=== PATIENT | female | born 1960 | race Caucasian/White ===

== ENCOUNTER 2025-09-20 19:04 | Emergency (ER) | payer MEDICARE, OTHER, SELFPAY ==
[2025-09-20 19:08] VITALS: BP 133/85
[2025-09-20 19:35] LABS: Hematocrit 40.2 % (37.0-47.0); Hemoglobin 13.1 g/dL (12.0-16.0); Mean Corp Hgb Conc. 32.6 g/dL (33.0-37.0); Mean Corpuscular Volume 80.4 fL (81.0-99.0); Nucleated Red Blood Cells % 0 %; Platelet Count 368 10^3/uL (130-400); Red Cell Dist. Width 14.6 % (11.5-14.5)
[2025-09-20 19:57] LABS: ALT (SGPT) 247 U/L (0-35); AST (SGOT) 52 U/L (14-36); Albumin 4.1 g/dl (3.5-5.0); Alkaline Phosphatase 334 U/L (38-126); Blood Urea Nitrogen 56 mg/dl (7-17); Calcium 8.8 mg/dl (8.4-10.2); Carbon Dioxide 22 mmol/L (22-30); Chloride 101 mmol/L (98-107); Glucose 141 mg/dl (70-99); Lipase 125 U/L (23-300); Potassium 3.6 mmol/L (3.5-5.1); Sodium 136 mmol/L (135-145); Total Protein 6.6 g/dl (6.3-8.2); eGFR 49.61
[2025-09-20 20:46] VITALS: BMI 28.4
[2025-09-20] MEDS: ZOFRAN 4 MG IV (21:00)
[2025-09-20] MEDS: NSS 250 IV (21:00)
[2025-09-20] MEDS: MORPHINE SULFATE 2 MG IV (21:01)
[2025-09-20] MEDS: FLAGYL 500 MG 100 IV (22:16)
--- NOTE | 2025-09-20 22:38 | ED.GENMED ---
History of Present Illness
<Ruth Youssef PA-C - Last Filed: 09/21/25 20:34>
General
Chief Complaint: Abdominal Pain
Time Seen by Provider: 09/20/25 20:24
History of Present Illness
History of Present Illness:
That he is a 65-year-old female with complicated past surgical history including Pamela-en-Y gastric bypass in [address] Bautista at [facility], appendectomy, cholecystectomy who presents with several days of nausea and vomiting
associated with right-sided abdominal pain. No associated diarrhea. No fevers or chills. Last bowel movement was this morning and continues to pass flatus.
Phy Exam
<Ruth Youssef PA-C - Last Filed: 09/21/25 20:34>
General Physical Exam
General Presentation: well appearing and no apparent distress
General Skin: warm and dry
General Habitus: normal
General Mental: alert
General Hydration: appears well hydrated
ENT Exam
ENT Exam: EOMI, pharynx normal, neck supple and normocephalic
Eye Exam
Eye Exam: PERRL, cornea clear and conjunctiva normal
Cardiovascular Exam
Cardiovascular Exam: regular rate/rhythm, no edema, no murmur and normal peripheral pulses
Pulmonary Exam
Pulmonary Exam: lungs clear, no respiratory distress, no rales, no crackles, no rhonchi, no stridor, no wheezing and no cough
Gastrointestinal Exam
Gastrointestinal Exam: normal bowel sounds, soft, no organomegaly, no pulsatile mass, non distended, tender and other (No peritoneal signs, no guarding)
Palpation: right upper quadrant: Moderate tenderness and right lower quadrant: Moderate tenderness
Neurological Exam
Neurological Exam: alert, oriented x3, no motor deficits and speech normal
Musculoskeletal Exam
Musculoskeletal Exam: full ROM and no edema
Skin Exam
Skin Exam: normal color, warm/dry, no rash and no petechia
Psychiatric Exam
Psychiatric Exam: normal mood/affect
Course
<Ruth Youssef PA-C - Last Filed: 09/21/25 20:34>
Orders/Labs/Results
Orders:
Orders
09/20/25 19:14
Electrocardiogram (*1) Urgent
Reason for Study: Abdominal Pain
EKG- Treatment ONCE
09/20/25 19:27
Complete Blood Count/With Diff Urgent
Comprehensive Metabolic Panel Urgent
Lipase Urgent
09/20/25 20:40
CT Abd/pelvis W Iv Cont Urgent
Comment:
Reason For Exam: right sided pain
09/20/25 20:56
0.9% Sodium Chloride 250 ml [Nss] 250 ml IV BOLUS
Morphine Sulfate 2 mg IV NOW STA
Ondansetron Injectable [Zofran] 4 mg IV NOW STA
09/20/25 21:58
Ciprofloxacin 200 mg/[id number] [Cipro 200 mg] 100 ml IV NOW
MetroNIDAZOLE 500 MG/100 ML [Flagyl 500 mg] 100 ml IV NOW
Abnormal Lab Results
09/20/25
19:27
WBC 15.4 H 10^3/uL
(4.8-10.8)
MCV 80.4 L fL
(81.0-99.0)
MCH 26.2 L pg
(27.0-31.0)
MCHC 32.6 L g/dL
(33.0-37.0)
RDW 14.6 H %
(11.5-14.5)
Abs Immat Gran (auto) 0.1 H 10^3/uL
(0-0.05)
Absolute Neuts (auto) 13.7 H 10^3/uL
(1.4-6.5)
Absolute Lymphs (auto) 0.8 L 10^3/uL
(1.2-3.4)
Absolute Monos (auto) 0.8 H 10^3/uL
(0.1-0.6)
Neutrophils % 88.9 H %
(42.2-75.2)
Lymphocytes % 5.3 L %
(20.5-51.1)
BUN 56 H mg/dl
(7-17)
Creatinine 1.2 H mg/dL
(0.6-1.0)
Glucose 141 H mg/dl
(70-99)
Total Bilirubin 2.3 H mg/dl
(0.2-1.3)
AST 52 H U/L
(14-36)
ALT 247 H U/L
(0-35)
Alkaline Phosphatase 334 H U/L
(38-126)
09/20/25 19:27
09/20/25 19:27
Vital Signs
Initial and Last Documented VS:
Initial Vital Signs
Temp Pulse Resp BP Pulse Ox
36.8 C 91 16 133/85 96
09/20/25 19:08 09/20/25 19:08 09/20/25 19:08 09/20/25 19:08 09/20/25 19:08
Last Documented Vital Signs
Temp Pulse Resp BP Pulse Ox
36.8 C 91 18 133/85 96
09/20/25 19:08 09/20/25 19:08 09/20/25 22:00 09/20/25 19:08 09/20/25 22:48
<Les Cleveland, DO - Last Filed: 09/20/25 23:30>
Orders/Labs/Results
Orders:
Orders
09/20/25 19:14
Electrocardiogram (*1) Urgent
Reason for Study: Abdominal Pain
EKG- Treatment ONCE
09/20/25 19:27
Complete Blood Count/With Diff Urgent
Comprehensive Metabolic Panel Urgent
Lipase Urgent
09/20/25 20:40
CT Abd/pelvis W Iv Cont Urgent
Comment:
Reason For Exam: right sided pain
09/20/25 20:56
0.9% Sodium Chloride 250 ml [Nss] 250 ml IV BOLUS
Morphine Sulfate 2 mg IV NOW STA
Ondansetron Injectable [Zofran] 4 mg IV NOW STA
09/20/25 21:58
Ciprofloxacin 200 mg/[id number] [Cipro 200 mg] 100 ml IV NOW
MetroNIDAZOLE 500 MG/100 ML [Flagyl 500 mg] 100 ml IV NOW
Abnormal Lab Results
09/20/25
19:27
WBC 15.4 H 10^3/uL
(4.8-10.8)
MCV 80.4 L fL
(81.0-99.0)
MCH 26.2 L pg
(27.0-31.0)
MCHC 32.6 L g/dL
(33.0-37.0)
RDW 14.6 H %
(11.5-14.5)
Abs Immat Gran (auto) 0.1 H 10^3/uL
(0-0.05)
Absolute Neuts (auto) 13.7 H 10^3/uL
(1.4-6.5)
Absolute Lymphs (auto) 0.8 L 10^3/uL
(1.2-3.4)
Absolute Monos (auto) 0.8 H 10^3/uL
(0.1-0.6)
Neutrophils % 88.9 H %
(42.2-75.2)
Lymphocytes % 5.3 L %
(20.5-51.1)
BUN 56 H mg/dl
(7-17)
Creatinine 1.2 H mg/dL
(0.6-1.0)
Glucose 141 H mg/dl
(70-99)
Total Bilirubin 2.3 H mg/dl
(0.2-1.3)
AST 52 H U/L
(14-36)
ALT 247 H U/L
(0-35)
Alkaline Phosphatase 334 H U/L
(38-126)
09/20/25 19:27
09/20/25 19:27
Vital Signs
Initial and Last Documented VS:
Initial Vital Signs
Temp Pulse Resp BP Pulse Ox
36.8 C 91 16 133/85 96
09/20/25 19:08 09/20/25 19:08 09/20/25 19:08 09/20/25 19:08 09/20/25 19:08
Last Documented Vital Signs
Temp Pulse Resp BP Pulse Ox
36.8 C 91 18 133/85 96
09/20/25 19:08 09/20/25 19:08 09/20/25 22:00 09/20/25 19:08 09/20/25 22:48
<Ruth Youssef PA-C - Last Filed: 09/21/25 20:34>
MDM/Problems Addressed
Differential Diagnosis Includes:
CT shows leukocytosis of 15.4. Afebrile, hemodynamically stable. No peritoneal signs but tender in the RLQ. CT scan shows high-grade small bowel obstruction with transition point in the anterior mid abdomen. There appears to be a focal perforation
within the small bowel within the right lower quadrant with a small amount of extraluminal gas free fluid as well as a discontinuity within the wall. Discussed case with general surgery who feels patient would be best served a bariatric center as
she is stable.
Cipro and flagyl given.
[facility] transfer center called. Patient accepted by ER physician Dr. Lockhart and bariatric surgeon Dr. Mireles service in transfer to ER for consideration of operative intervention tonight. Transfer being arranged.
<Ruth Youssef PA-C - Last Filed: 09/21/25 20:34>
*Pulse Oximetry
SaO2: 96
Oxygen Mode of Delivery: Room air
Patient hypoxic: no
*Critical Care Note
Total Time (30-74mins, 75-104mins- exclusive of procedures): Not Applicable
ED Attending Note
<Ruth Youssef PA-C - Last Filed: 09/21/25 20:34>
-
Portions of this chart may have been created with voice recognition software.� Occasional wrong word or��sound alike� substitutions may have occurred due to the inherent limitations of voice recognition software.
<Les Cleveland DO - Last Filed: 09/20/25 23:30>
ED Attending Note
Patient seen and examined by attending physician: Yes
I performed the substantive portion of visit, reviewed & personally made and approve the management plan that is documented in note by myself or NIKITA.: Yes
Discharge Plan
Departure
Patient Disposition: Acute Care Hospital
Date of Disposition: 09/20/25
Time of Disposition: 23:00
Discharge Problem:
Complete small bowel obstruction, Bowel perforation
Referrals:
Parker Howe DO [Family Provider, [facility]]
Hospital Transfer
Other hospital: [facility]
I certify that the patient requires transfer: Yes
Discussed case with accepting physician: Say
Reason for transfer: higher level of care, availability of service and specialties available
Interventions
Interventions:
*General Assessment Last Done: 09/20/25 20:46
*Neglect/Abuse Screening Last Done: 09/20/25 19:08
*ED COVID-19 Vaccine History Last Done: 09/20/25 20:46
*ED Influenza Vaccine History Last Done: 09/20/25 20:46
[facility] Risk Assessment Tool Last Done: 09/20/25 20:46
*Risk Screen - Suicide (C-SSRS) Last Done: 09/20/25 19:08
*Nursing Disposition Last Done: 09/20/25 23:39
XV-Pqjdqz-Zmuwdkeycd Assessment Last Done: 09/20/25 20:46
Discharge Date and Time
Discharge Date/Time: 09/20/25 23:40
Print Language: JAPANESE
== END 2025-09-20 23:40 | disposition short-term general hospital (02) ==
LOC: EMR 19:04
PROVIDERS: Emergency Medicine; EMERGENCY PHYSICIAN Emergency Medicine; FAMILY PHYSICIAN Family Medicine
DX: K56.609 Unspecified intestinal obstruction, unspecified as to partial versus complete obstruction (principal); R11.2 Nausea with vomiting, unspecified; Z98.84 Bariatric surgery status
CPT/HCPCS: 96365; 96375; 96361; 99285; 74177; 80053; 83690; 85025; 93005; Q9967